=== PATIENT | female | born 1980 | race Caucasian/White ===

== ENCOUNTER 2019-12-27 16:17 | Outpatient (CLI) | payer BC, OTHER, SELFPAY ==
--- NOTE | ~2019-12-27 | US_ITS ---
US pelvic complete w TV DATE: 12/27/2019 17:08 INDICATION: Irregular heavy menstruation TECHNIQUE: Real-time imaging via transabdominal and transvaginal approaches COMPARISON: None FINDINGS: The uterus measures 8.2 cm height, 4.2 cm anteroposterior dimension. The central endometria l echo complex measures up to approximately 12 mm maximal anteroposterior dimension. There is an appr oximately 12 mm fibroid in the anterior uterine fundic area. The right ovary measures 2.1 x 1.5 x 1.5 cm. There is vascular flow to the right ovary. The left ovary measures 2.9 x 2.3 x 2.4 cm. It contains a complex mass of 2.3 x 2 x 1.9 cm dimension. There is vascular flow to the left ovary. No other pelvic mass lesion or abnormal free pelvic fluid collection is detected. IMPRESSION: Pulmonary fundic uterine fibroid Prominent central endometrial echo, measuring up to 12 there is AP dimension; endometrial mass is not excluded. Complex left ovarian mass of 2.3 cm maximal dimension Reviewed, dictated and finalized at [facility]. Reviewed, dictated and finalized at [facility]. IMPRESSION: Pulmonary fundic uterine fibroid Prominent central endometrial echo, measuring up to 12 there is AP dimension; e ndometrial mass is not excluded. Complex left ovarian mass of 2.3 cm maximal dimension
--- NOTE | ~2019-12-27 | MM_ITS ---
EXAMINATION: MM screening aubrey BI w madelyn HISTORY: Screening TECHNIQUE: Craniocaudal and mediolateral oblique 3-D tomosynthesis images were obtained and synthetic 2-D images were generated. CAD analysis was submitted and interpreted. COMPARISON: No prior mammogram is available for comparison at this institution. BREAST PARENCHYMAL COMPOSITION: The breasts are heterogeneously dense, which may obscure small masses . FINDINGS: There is no evidence of suspicious mass, calcification, or architectural distortion to sugg est malignancy in either breast. There has been no suspicious interval change. IMPRESSION: 1. No mammographic evidence of malignancy. 2. Recommend routine screening mammography in one year. BI-RADS Category 1: Negative Reviewed, dictated and finalized at [facility].
== END 2019-12-27 16:18 | disposition home or self-care (01) ==
PROVIDERS: PCP Obstetrics & Gynecology; Visit Provider Obstetrics & Gynecology
DX: Z12.31 Encounter for screening mammogram for malignant neoplasm of breast (principal); N92.6 Irregular menstruation, unspecified
CPT/HCPCS: 76830; 76856; 77063; 77067

== ENCOUNTER 2021-11-24 14:40 | Outpatient (CLI) | payer BC, OTHER, SELFPAY ==
--- NOTE | ~2021-11-24 | MM_ITS ---
EXAMINATION: MM screening aubrey BI w madelyn HISTORY: Screening TECHNIQUE: Craniocaudal and mediolateral oblique 3-D tomosynthesis images were obtained and synthetic 2-D images were generated. CAD analysis was submitted and interpreted. COMPARISON: 12/27/2019 BREAST PARENCHYMAL COMPOSITION: The breasts are heterogeneously dense, which may obscure small masses . FINDINGS: There is no evidence of suspicious mass, calcification, or architectural distortion to sugg est malignancy in either breast. There has been no suspicious interval change. IMPRESSION: 1. No mammographic evidence of malignancy. 2. Recommend routine screening mammography in one year. BI-RADS Category 1: Negative Reviewed, dictated and finalized at [facility].
== END 2021-11-24 14:41 | disposition home or self-care (01) ==
PROVIDERS: PCP Obstetrics & Gynecology; Visit Provider Obstetrics & Gynecology
DX: Z12.31 Encounter for screening mammogram for malignant neoplasm of breast (principal)
CPT/HCPCS: 77063; 77067

== ENCOUNTER 2023-01-12 15:36 | Outpatient (CLI) | payer BC, OTHER, SELFPAY ==
--- NOTE | ~2023-01-12 | MM_ITS ---
EXAMINATION: MM screening aubrey BI w madelyn HISTORY: Screening TECHNIQUE: Craniocaudal and mediolateral oblique 3-D tomosynthesis images were obtained and synthetic 2-D images were generated. CAD analysis was submitted and interpreted. COMPARISON: 11/24/2021 BREAST PARENCHYMAL COMPOSITION: There are scattered areas of fibroglandular density. FINDINGS: There is no evidence of suspicious mass, calcification, or architectural distortion to sugg est malignancy in either breast. There has been no suspicious interval change. IMPRESSION: 1. No mammographic evidence of malignancy. 2. Recommend routine screening mammography in one year. BI-RADS Category 1: Negative Reviewed, dictated and finalized at [facility].
== END 2023-01-12 15:37 | disposition home or self-care (01) ==
LOC: ANHIMG 15:39
PROVIDERS: PCP Obstetrics & Gynecology; Visit Provider Obstetrics & Gynecology
DX: Z12.31 Encounter for screening mammogram for malignant neoplasm of breast (principal)
CPT/HCPCS: 77063; 77067

== ENCOUNTER 2024-02-06 14:13 | Outpatient (CLI) | payer BC, OTHER, SELFPAY ==
--- NOTE | ~2024-02-06 | MM_ITS ---
EXAMINATION: MM screening aubrey BI w madelyn HISTORY: Screening TECHNIQUE: Craniocaudal and mediolateral oblique 3-D tomosynthesis images were obtained and synthetic 2-D images were generated. CAD analysis was submitted and interpreted. COMPARISON: Comparison to multiple prior studies sequentially, with oldest reviewed study dated 06/2019. BREAST PARENCHYMAL COMPOSITION: Not dense: There are scattered areas of fibroglandular density. FINDINGS: There is no evidence of suspicious mass, calcification, or architectural distortion to sugg est malignancy in either breast. There has been no suspicious interval change. IMPRESSION: 1. No mammographic evidence of malignancy. 2. Recommend routine screening mammography in one year. BI-RADS Category 1: Negative Reviewed, dictated and finalized at [facility].
== END 2024-02-06 14:14 | disposition home or self-care (01) ==
LOC: ANHIMG 14:14
PROVIDERS: PCP Obstetrics & Gynecology; Visit Provider Obstetrics & Gynecology
DX: Z12.31 Encounter for screening mammogram for malignant neoplasm of breast (principal)
CPT/HCPCS: 77063; 77067

== ENCOUNTER 2025-03-04 09:36 | Outpatient (CLI) | payer BC, OTHER, SELFPAY ==
--- NOTE | ~2025-03-04 | MM_ITS ---
EXAMINATION: MM screening aubrey BI w madelyn HISTORY: Screening TECHNIQUE: Craniocaudal and mediolateral oblique 3-D tomosynthesis images were obtained and synthetic 2-D images were generated. CAD analysis was submitted and interpreted. COMPARISON: Comparison to multiple prior studies sequentially, with oldest reviewed study dated 12/27/2019. BREAST PARENCHYMAL COMPOSITION: Not dense: There are scattered areas of fibroglandular density. FINDINGS: There is no evidence of suspicious mass, calcification, or architectural distortion to suggest malignancy in either breast. There has been no suspicious interval change. IMPRESSION: 1. No mammographic evidence of malignancy. 2. Recommend routine screening mammography in one year. BI-RADS Category 1: Negative Reviewed, dictated and finalized at [facility]. [facility] [employer]
--- OUTSIDE RECORDS SUMMARY | 2025-03-04 10:15 | XMS_ITS | Clinical Summary ---
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 Gender Identity Not on file Sexual Orientation Not on file Plan of Treatment Health Maintenance Due Date Last Done Comments Cervical Cancer Screening Pa p Smear (Age 30 to 64) Every 3 Years 1978 Colorectal Cancer Screening Colonoscopy (10 Years) 1978 Annual Physical 1981 Hepatitis C 1996 DTaP, Tdap and Td Vaccines ( 1 - Tdap) 1997 Hepatitis B Vaccines (1 of 3 - 19+ 3-dose series) 1997 Cervical Cancer Screening Pa p with HPV Testing (Age 30 to 64) Every 5 Years 2008 Cervical Cancer Screening with HPV 2008 Mammogram Screening 2018 COVID-19 Vaccine (2024-2 6 season) 2024 Influenza Adult (#1) 2025 Hepatitis A Vaccines Aged Out No long er eligible based on patient's age to complete this topic Meningococcal B Vaccine Aged Out No l onger eligible based on patient's age to complete this topic Meningococcal Vaccine Aged Out No brittney greg eligible based on patient's age to complete this topic Pneumococcal Vaccine: Pediat rics (0 to 5 Years) and At-Risk Patients (6 to 49 Years) Aged Out No longer eligible b ased on patient's age to complete this topic RSV Immunizations Under 20 Months Aged Out No longer eligible based on patient's age to complete this topic
== END 2025-03-04 09:37 | disposition home or self-care (01) ==
LOC: ANHFOHIMG 09:38
PROVIDERS: Visit Provider Obstetrics & Gynecology
DX: Z12.31 Encounter for screening mammogram for malignant neoplasm of breast (principal)
CPT/HCPCS: 77063; 77067